=== PATIENT | male | born 1955 | race Caucasian/White ===

== ENCOUNTER 2023-05-28 13:25 | Outpatient (AMB) | payer MEDICARE, SELFPAY ==
--- NOTE | 2023-05-28 13:34 | HO.SPINEOV ---
Intake Intake Visit Reasons: cervical radiculopathy Intake Note: Mr. Mendez is here today c/o neck pain. MRI done @ [facility]/brought disc. [employer] Leak Tester Required: No Assessment & Plan Assessment & Plan (1) Cervical disc disorder: Code(s): M50.90 - Cervical disc disorder, unspecified, unspecified cervical region Plan Dear Saul Thank you for referring Mr Mendez to our office today. This is a 68-year-old gentleman who has had 7 8 months of a tingling sensation in his right arm. It goes down from the top of his shoulder into his wrist. It does not go into his hand. There is no weakness, pain etc.. It is more just annoying sensation. He underwent a workup showing multiple levels of foraminal stenosis in the cervical spine was sent today for evaluation. To this point he has had no need for any conservative therapy as he is not really in any discomfort or debilitated by the symptoms. PMH: Borderline hypertension, hernia surgery Social hx: He does not smoke Medications: Amlodipine Allergies: None Physical exam: Intact gait, strength and reflexes of the upper lower extremities Imaging review: Cervical MRI done at [facility] in February of 2023 shows multilevel degenerative disc disease, he has foraminal narrowing on the right at C3-4, bilateral foraminal stenosis at C4-5, right-sided C5-6 foraminal stenosis Impression: This is a 68-year-old gentleman who has had 7-8 months of tingling down his right arm into his wrist. It is not disabling or painful. It is just an annoying sensation. His MRI shows he does have some degeneration of his discs and some foraminal narrowing as outlined above. I suspect this is coming from the C5-6 disc and the C6 nerve root given the dermatomal distribution. We discussed the natural history of degenerative disc disease. I reassured him this may go away as quickly as it came and that if it became uncomfortable or bothersome we certainly could start with some physical therapy and follow-up after that. For right now, he will hold off on the therapy and let me know if things get any worse. Thank you for allowing us to care for your patient. The total time spent with this visit with this patient was 45 minutes reviewing history, physical exam, cervical spine imaging review, and implementation of treatment plan or further diagnostic testing Lukasz Gutierrez MD,PhD [facility] Coding Level of Care Code New Pt Level 4 (02010) Diagnoses Cervical disc disorder M50.90
== END 2023-05-28 13:52 | disposition home or self-care (01) ==
PROVIDERS: PCP Internal Medicine; Referring Provider Physician Assistant; Visit Provider Physician Assistant
DX: M50.90 Cervical disc disorder, unspecified, unspecified cervical region (principal)
CPT/HCPCS: 99204

== ENCOUNTER → 2023-05-28 13:25 | Outpatient (BNVA) | payer MEDICARE, SELFPAY | PROVIDERS: PCP Internal Medicine; Referring Provider Physician Assistant; Visit Provider Physician Assistant | DX: M50.90 Cervical disc disorder, unspecified, unspecified cervical region (principal); M48.02 Spinal stenosis, cervical region | CPT/HCPCS: 99202 ==

== ENCOUNTER 2025-05-06 08:55 | Outpatient (AMB) | payer MEDICARE, SELFPAY ==
[2025-05-06 09:13] VITALS: BMI 25.0
--- NOTE | 2025-05-06 09:13 | A.OFFVIS_ITS ---
VS Expanded 05/06/25 09:13 05/06/25 15:02 Height 5 ft 9 in 5 ft 9 in Weight 169 lb 8.568 oz 170 lb BMI 25.0 25.1 Intake Visit Reasons: Obesity Nutrition Presentation Details: Pt presents for MNT for obesity Pt reports working on reducing sugars, gradually losing weight and maintaining at 165-175 lbs Typical meal B: oatmeal water, or cereal 2% left over or peanut butter , juice dinner: chicken and pasta ,cold salad food frequency fish : 1/wk fruits: 0-1/d vegetables: 3 x/wk milk : 1/day physical activity: 2/xkw etoh /xmoking: denies not on MVI pre diabetes range int he past, has worked on reducing sugar BBQ-Jqmncqq-Lk.Chevyor Equation Height: 5 ft 9 in Weight: 170 lb Resting Metabolic Rate: 1526.31 Calculated Activity Level: Mild Activity Calories Needed to Maintain Weight: 2098.68 Diagnosis Nutrition problem #1: food nutri know defi (related to fiber rich foods) As related to (etiology) #1: lack of nutrit education As evidenced by (sign/symptom) #1: food recall Assessment & Plan Assessment & Plan (1) Obesity (BMI 30.0-34.9): Code(s): E66.811 - Obesity, class 1 Category: Medical Plan: Pt currently with BMI at 25.1, will review fiber rich food options Wt: 77Kg ( 05/24 ) Est kcal needs as per MSJ: 6066-7606 (40% carb, 30% protein/fat) Est fluid needs as per 25-30 ml/d: 2300 Est prot per day as per 1 g/kg bw: 77 Recommend fiber intake : 8-10 g per day and gradually increase to 25-28 g per day for women and 35-38 g for men or as tolerated Recommend sodium intake per day : less than 2300 mg Educated patient on: ( R = reviewed V = verbalizes understanding N/R = needs review N/A = not applicable * Food sources of carbohydrate, adequate serving sizes and its role in various health conditions: R V * Differences between complex carbohydrates a simple carbohydrates, role of fiber in diet: R * Lean protein sources of foods: R V * Differences between types of fats and role in diet (mono on saturated fat fatty acids, saturated fatty acids, trans fats): R * Food sources of sodium in salt and healthy modifications for heart health in kidney health: R V R/V * Vitamins and minerals: R V N/R * Healthy plate method concept: R V * Physical activity: Benefits a precaution: R V * Patient Instructions: Choose fiber rich foods (whole grain breads, cereals, legumes, )- see options ENgage in physical activity 150 minutes per week Coding Level of Care Code Nutr Indiv Intake (28952) Diagnoses Obesity (BMI 30.0-34.9) E66.811 Time Spent (min) 30
--- OUTSIDE RECORDS SUMMARY | 2025-05-06 09:16 | XMS_ITS ---
[facility] Name [facility] Organization Unknown Care Team Organization Name Specialty Phone Email Start Date End Da te [facility] GUZMAN CRUZ Primary Care 08/07/2022 4
--- OUTSIDE RECORDS SUMMARY | 2025-05-06 09:16 | XMS_ITS | Clinical Summary ---
Author Organization [facility] [address] [facility] Address [address] [place] [address] [place] [address] Phone Care Team Providers Care Viticulture Teacher Name Role Phone Donald Short MD Primary Care Provider [phone] Allergies Active Allergy Reactions Criticality Noted Date Comments Bee Venom Protein (Honey Bee) Swelling 2020 Bee Stings Medications amLODIPine (NORVASC) 5 mg tablet Take 1 tablet (5 mg total) by mouth 1 (one) time each day. 4 Active amLODIPine (NORVASC) 5 mg tablet TAKE 1 TABLET BY MOUTH DAILY 90 tablet 3 5 Active amLODIPine (NORVASC) 5 mg tablet TAKE 1 TABLET BY MOUTH DAILY 90 tablet 1 5 05/03/20 25 Discontinued Active Problems Problem Noted Date Diagnosed Date Plantar fasciitis, left 07/28/2020 White matter disease, unspecified 03/24/2020 Dermatophytosis of nail 12/02/2019 Dilated aortic root (CMS/HCC V24) 10/09/2018 Overview (08/10/2024): Last Assessment & Plan: Stable Essential hypertension 10/07/2018 Overview (08/10/2024): Last Assessment & Plan: Controlled Mixed hyperlipidemia 05/23/2017 Prediabetes 12/24/2014 Overview (08/10/2024): Glucose 116, 09/04/2014 Hemorrhage of gastrointestinal tract 01/10/2009 Overview (08/10/2024): unspecified Chronic small-volume rectal bleeding. Negative colonoscopy 01/10/2009, no colon cancer screening needed for 10 years. [facility] Brachial neuritis or radiculitis 03/12/2008 Overview (08/10/2024): NOS O update Allergic rhinitis 04/25/2006 Overview (08/10/2024): cause unspecified Chronic neck pain 04/25/2006 Encounters Date Type Department Care Team Description 04/22/2025 Telephone Adult Medicine [address] [phone] Donald Short MD Referral 03/16/2025 3:30 PM EDT Office Visit Adult Medicine [address] [phone] Donald Short MD Essential hypertension (Primary Dx); Dilated aortic root (CMS/HCC V24); Overweight (BMI 25.0-29.9); Pure hypercholesterolemia; Prediabetes; Skin lesion of neck from Last 3 Months Immunizations Name Administration Dates Next Due Pneumococcal conjugate 13 va lent (Prevnar 13, PCV13) 2mo and older 06/13/2021 Td Tetanus diptheria (Tdvax) 7yo and older 06/13 Tdap Tetanus diptheria acell ular pertussis (Boostrix; Adacel) 7yo and older 04/03/2010 Surgical History Surgery Date Site/Laterality Comments HERNIA REPAIR 1997 PROCEDURE: HISTORICAL HERNIA REPAIR/ING; COMMENT: times 2 PARATHYROIDECTOMY 1982 PROCEDURE: HISTORICAL PARATHYROIDECTOMY; COMMENT: had nephrolithiasis HERNIA REPAIR 2002 PROCEDURE: HISTORICAL HERNIA REPAIR/ING; COMMENT: Dr. Pedro best MULTIPLE TOOTH EXTRACTIONS PROCEDURE: HISTORICAL DENTAL EXTRACTION COLONOSCOPY 01/10/2009 PROCEDURE: HISTORICAL COLONOSCOPY; COMMENT: Normal COLONOSCOPY 07/18/2005 PROCEDURE: HISTORICAL COLONOSCOPY; COMMENT: Normal COLONOSCOPY 03/02/2019 PROCEDURE: HISTORICAL COLONOSCOPY; COMMENT: Normal Medical History Medical History Date Comments Allergic rhinitis, cause unspecified 04/25/2006 DX:Allergic rhinitis, cause unspecified Cervicalgia 04/25/2006 DX:Cervicalgia Hemorrhage of gastrointestin al tract, unspecified 01/10/2009 DX:Hemorrhage of gastrointes tinal tract, unspecified; COMMENT: Chronic small-volume rectal bleeding. Negative colonoscopy 01/10/2009, no colon cancer screening needed for 10 years. Dermatophytosis of nail DX:[place] tophytosis of nail Essential hypertension 10/07/2018 Family History Medical History Relation Name Comments Prostate cancer Brother Prostate cancer Father Other: ca of unknown primary Father's side Aunt Ovarian cancer Maternal Grandmother Other: memory loss Mother Heart attack Paternal Grandmother Blindness Neg Hx Cataracts Neg Hx Glaucoma Neg Hx Macular degeneration Neg Hx Strabismus Neg Hx Relation Name Status Comments Brother Father Alive Father's side Maternal Grandmother Mother Alive Paternal Grandmother Social History Tobacco Use Types Packs/Day Years Used Date Smoking Tobacco: Never Smokeless Tobacco: Never Tobacco Cessation:Counseling Given: Not Answered Alcohol Use Standard Drinks/Week Comments No 0 (1 standard drink = 0.6 oz pur e alcohol) Housing Instability Answer Date Recorde d Are you worried that in the next 2 months you may not have stable housing? No 03/09/2025 Food Access & Nutrition Answer Date Rec orded Do you have access to a vari ety of food including fruits and vegetables? Yes 03/09/2025 Access to Healthcare Answer Date Record ed Within the last 3 months, ho w many times did you visit the emergency department for your medical care? 0 03/09/2025 Health Literacy Answer Date Recorded How often do you need to hav e someone help you when you read instructions, pamphlets, or other written material from your doctor or pharmacy? Never 03/09/2025 Caregiver: How often do you need to have someone help you when you read instructions, pamphlets, or other written material from your doctor or pharmacy? Not on file 03/09/2025 Financial Risk Answer Date Recorded How hard is it for you to pa y for the very basics like food, housing, medical care, and air conditioning / heating? Not very hard 03/09/2025 Transportation Answer Date Recorded Has the lack of transportati on kept you from meetings, work, or from getting things needed for daily living? No Has the lack of transportati on kept you from medical appointments or from getting medications? No 03/09/2025 Social Isolation Answer Date Recorded How often do you feel lonely or isolated from th ose around you? Never 03/09/2025 Food Risk Answer Date Recorded Within the past 12 months we worried whether our food would run out before we got money to buy more. Never true 03/09/2025 Within the past 12 months th e food we bought just didn't last and we didn't have money to get more. Never true 03/09/2025 Dependent Care Answer Date Recorded Do you need help finding or paying for care for your loved ones. For example, salesperson children's shoes or elderly care for an older adult? No 03/09/2025 Education Answer Date Recorded Do you think completing more education or training, like finishing a GED, going to college, or learning a trade, would be helpful for you? No 03/09/2025 Employment and Income Answer Date Recor ded During the last four weeks, have you been actively looking for work? No 03/09/2025 Living Situation Answer Date Recorded What is your living situation? 0 03/09/2025 Sex and Gender Information Value Date Recorded Sex Assigned at Not on file Legal Sex Male 1:28 PM EST Gender Identity Not on file Sexual Orientation Not on file Obstetrics History Last Filed Vital Signs Vital Sign Reading Time Taken Comments Blood Pressure 135/76 03/16/2025 3:19 PM EDT Pulse 63 03/16/2025 3:19 PM EDT Temperature 36.4 C (97.5 F) 03/16/2025 3:19 PM EDT Respiratory Rate 16 03/16/2025 3:19 PM EDT Oxygen Saturation 94% 03/16/2025 3:19 PM EDT Inhaled Oxygen Concentration - - Weight 79.4 kg (175 lb) 03/16/2025 3:19 PM EDT Height 177.8 cm (5' 10 ) 03/16/2025 3:19 PM EDT Body Mass Index 25.11 03/16/2025 3:19 PM EDT Plan of Treatment Upcoming Encounters Date Type Department Care Team (Late st Contact Info) Description 06/24/2025 3:00 PM EDT Ancillary Procedure [facility] [address] [place] [address] 10/07/2025 3:45 PM EST Office Visit Adult Medicine [facility] [address] [place] [address] Donald Short MD [address] [place] [id number] Health Maintenance Due Date Last Done Comments Zoster Vaccines (1 of 2) 2005 Pneumococcal Vaccine: 50+ Years (2 of 2 - PPSV23) 06/13/2022 06/13/2021 Falls Risk Assessment 09/08/2022 Medicare Annual Wellness Visit 09/08/2022 COVID-19 Vaccine ( season) 2024 10/25/2022, 10/11/2021, 01/22/2021, Additional history exists Influenza Vaccine (#1) 2025 Social Influencers of Health Screening 03/09/2026 03/09/2025 Hypertension/CHF/CAD Annual BMP Blood Test 03/16/2026 03/16/2025, 09/11/2024, 11/04/2023 Colorectal Cancer Screening: Colonoscopy 03/02/2029 03/02/2019 RSV Immunization Adult Patients (1 - 1-dose 75+ series) 2030 Cholesterol Screening (Lipid Panel) 03/16/2030 03/16/2025, 09/11/2024, 05/10/2023 DTaP,Tdap,and Td Vaccines (3 - Td or Tdap) 06/13/2031 06/13/2021, 04/03/2010 Hepatitis C Screening Completed 04/13/2013 Depression Screening Completed 03/09/2025 HIB Vaccines Aged Out No longer eligi ble based on patient's age to complete this topic HPV Vaccines Aged Out No longer eligi ble based on patient's age to complete this topic Hepatitis A Vaccines Aged Out No long er eligible based on patient's age to complete this topic Hepatitis B Vaccines Aged Out No long er eligible based on patient's age to complete this topic IPV Vaccines Aged Out No longer eligi ble based on patient's age to complete this topic MMR Vaccines Aged Out No longer eligi ble based on patient's age to complete this topic Meningococcal ACWY Vaccine Aged Out N o longer eligible based on patient's age to complete this topic Meningococcal B Vaccine Aged Out No l onger eligible based on patient's age to complete this topic RSV Immunization Patients Under 20 months Aged Out No longer eligible based on patient's age to complete this topic Varicella Vaccines Aged Out No longer eligible based on patient's age to complete this topic Procedures Procedure Name Priority Date/Time Associated Diagnosis Comments LIPID PANEL WITH REFLEX TO DIRECT LDL Routine 03/16/2025 4:17 PM EDT Pure hypercholesterolemia HEMOGLOBIN A1C Routine 03/16/2025 4:17 PM EDT Prediabetes BASIC METABOLIC PANEL Routine 03/16/2025 4:17 PM EDT Essential hypertension COLONOSCOPY Routine 03/02/2019 HEPATITIS C SCREENING Routine 04/13/2013 from Last 3 Months or Most Recently Relevant to Health Maintenance Results * Lipid panel with reflex to direct LDL (03/16/2025 4:17 PM EDT) Cholesterol 160 0 - 200 mg/dL LAB CHEMISTRY METHOD 03/16/2025 7:10 PM EDT [facility] Triglycerides 64 0 - 150 mg/dL LAB CHEMISTRY METHOD 03/16/2025 7:10 PM EDT [facility] HDL 59 >=40 mg/dL LAB CHEMISTRY METHOD 03/16/2025 7:10 PM EDT [facility] LDL Calculated 88 0 - 100 mg/dL LAB CHEMISTRY METHOD 03/16/2025 7:10 PM EDT [facility] VLDL Cholesterol Noam 12.8 mg/dL LAB CHEMISTRY METHOD 03/16/2025 7:10 PM EDT [facility] Non HDL Chol. (LDL+VLDL) 101 <145 mg/dL LAB CHEMISTRY METHOD 03/16/2025 7:10 PM EDT [facility] Chol/HDL Ratio 2.7 0.0 - 4.4 LAB CHEMISTRY METHOD 03/16/2025 7:10 PM EDT [facility] Blood Venous blood specimen / Unknown Venipuncture / Unknown 03/16/2025 4:17 PM EDT 03/16/2025 4:17 PM EDT us Donald Short MD LAB BLOOD ORDERABLES Final Resu lt Performing Organization Address [facility]/ZIP Co de Phone Number [facility] [address] [place] [address], [place] [phone] * Hemoglobin A1c (03/16/2025 4:17 PM EDT) Hemoglobin A1C 5.7 <6.5 % LAB CHEMISTRY METHOD 03/16/2025 9:54 PM EDT [facility] Mean Bld Glu Estim. 117 mg/dL LAB CHEMISTRY METHOD 03/16/2025 9:54 PM EDT [facility] Blood Venous blood specimen / Unknown Venipuncture / Unknown 03/16/2025 4:17 PM EDT 03/16/2025 4:17 PM EDT us Donald Short MD LAB BLOOD ORDERABLES Final Resu lt Performing Organization Address [facility] de Phone Number [facility] [address] [place] [address], [place] [phone] * Basic metabolic panel (03/16/2025 4:17 PM EDT) Sodium 138 133 - 145 mmol/L LAB CHEMISTRY METHOD 03/16/2025 7:08 PM EDT [facility] Potassium 3.9 3.5 - 5.5 mmol/L LAB CHEMISTRY METHOD 03/16/2025 7:08 PM EDT [facility] Chloride 102 96 - 110 mmol/L LAB CHEMISTRY METHOD 03/16/2025 7:08 PM EDT [facility] CO2 30 21 - 32 mmol/L LAB CHEMISTRY METHOD 03/16/2025 7:08 PM [facility] Anion Gap 6 3 - 11 LAB CHEMISTRY METHOD 03/16/2025 7:08 PM [facility] Glucose 85 70 - 100 mg/dL LAB CHEMISTRY METHOD 03/16/2025 7:08 PM [facility] BUN 20 5 - 25 mg/dL LAB CHEMISTRY METHOD 03/16/2025 7:08 PM [facility] Creatinine 0.90 0.70 - 1.30 mg/dL LAB CHEMISTRY METHOD 03/16/2025 7:08 PM [facility] eGFR 92 >=60 mL/min/1. 73m2 LAB CHEMISTRY METHOD 03/16/2025 7:08 PM [facility] Comment:Calculation based on the Chronic Kidney Disease Epidemiology Collaboration (CKD-EPI) equation refit without adjustment for race. BUN/Creatinine Ratio 22.2 LAB CHEMISTRY METHOD 03/16/2025 7:08 PM [facility] Calcium 9.1 8.5 - 10.5 mg/dL LAB CHEMISTRY METHOD 03/16/2025 7:08 PM [facility] Blood Venous blood specimen / Unknown Venipuncture / Unknown 03/16/2025 4:17 PM EDT 03/16/2025 4:17 PM EDT Donald Short MD LAB BLOOD ORDERABLES Final Resu lt [facility] [address] [place] [address], * Colonoscopy (03/02/2019) [facility] Colonoscopy Normal, Abstracted Anatomical Region Laterality Modality Other Jess Rivera MD HEALTH MAINTENANCE Final Result * Hepatitis C Screening (04/13/2013) [facility] Hepatitis C Screening Abstracted us Historical Provider HEALTH MAINTENANCE Final Result from Last 3 Months or Most Recently Relevant to Health Maintenance Insurance [employer] Care Teams Viticulture Teacher Relationship Specialty Start Date End Date Donald Short MD [address] [place] [id number] PCP - General Internal Medicine 04/26/20
[2025-05-06 15:02] VITALS: BMI 25.1
== END 2025-05-06 09:58 | disposition home or self-care (01) ==
LOC: HO.ENCR 08:56
PROVIDERS: PCP Internal Medicine; Visit Provider Dietitian, Registered
DX: E66.811 Obesity, class 1 (principal)

== ENCOUNTER → 2025-05-06 08:55 | Outpatient (BNVA) | payer MEDICARE, SELFPAY | PROVIDERS: PCP Internal Medicine; Visit Provider Dietitian, Registered | DX: E66.811 Obesity, class 1 (principal) | CPT/HCPCS: 97802 ==

== ENCOUNTER 2025-08-19 13:16 | Outpatient (AMB) | payer MEDICARE, SELFPAY ==
[2025-08-19 13:46] VITALS: BMI 25.2
--- NOTE | 2025-08-19 13:46 | A.OFFVIS_ITS ---
VS Expanded 08/19/25 13:46 08/30/25 14:38 Height 5 ft 9 in 5 ft 9 in Weight 171 lb 171 lb BMI 25.2 25.2 Intake Visit Reasons: Obesity Nutrition Presentation Details: Pt presents for MNT for obesity Pt presents with partner during this appointment. Patient reports he is weighed himself at home and weight at home was 165 lb noting some weight loss from last visit. Pt reports feeling comfortable with nutrition information provided at last visit and working on balancing meals. No questions or concerns expressed at this time. MHJ-Llvyvqf-Eo.Jeor Equation Height: 5 ft 9 in Weight: 171 lb Resting Metabolic Rate: 1530.84 Calculated Activity Level: Mild Activity Calories Needed to Maintain Weight: 2104.91 Assessment & Plan Assessment & Plan (1) Obesity (BMI 30.0-34.9): Code(s): E66.811 - Obesity, class 1 Category: Medical Plan: Pt currently with BMI at 25.1, [place] healthy plate method, low sat'd fat food options Wt: 77Kg ( 05/24 ) Est kcal needs as per MSJ: 1276-9622 (40% carb, 30% protein/fat) Est fluid needs as per 25-30 ml/d: 2300 Est prot per day as per 1 g/kg bw: 77 Recommend fiber intake : 8-10 g per day and gradually increase to 25-28 g per day for women and 35-38 g for men or as tolerated Recommend sodium intake per day : less than 2300 mg Educated patient on: ( R = reviewed V = verbalizes understanding N/R = needs review N/A = not applicable * Food sources of carbohydrate, adequate serving sizes and its role in various health conditions: R V * Differences between complex carbohydrates a simple carbohydrates, role of fiber in diet: R * Lean protein sources of foods: R V * Differences between types of fats and role in diet (mono on saturated fat fatty acids, saturated fatty acids, trans fats): R * Food sources of sodium in salt and healthy modifications for heart health in kidney health: R * Vitamins and minerals: R * Healthy plate method concept: R V * Physical activity: Benefits a precaution: R V * Patient Instructions: Continue following healthy plate method Keep hydrated by choosing low sugar beverages and including at least 2 -3 cups of dairy per day or alternatives calcium and vitamin-D fortified Coding Level of Care Code Nutr Indiv Subseq (38993) Diagnoses Obesity (BMI 30.0-34.9) E66.811 Time Spent (min) 30
[2025-08-30 14:38] VITALS: BMI 25.2
== END 2025-08-19 15:37 | disposition home or self-care (01) ==
LOC: HO.ENCR 13:16
PROVIDERS: PCP Internal Medicine; Visit Provider Dietitian, Registered
DX: E66.811 Obesity, class 1 (principal)

== ENCOUNTER → 2025-08-19 13:16 | Outpatient (BNVA) | payer MEDICARE, SELFPAY | PROVIDERS: PCP Internal Medicine; Visit Provider Dietitian, Registered | DX: E66.811 Obesity, class 1 (principal) | CPT/HCPCS: 97803 ==